=== PATIENT | female | born 2000 | race Caucasian/White ===

== ENCOUNTER 2022-03-10 19:29 | Emergency (ER) | payer OTHER ==
[2022-03-10] MEDS ORDERED: Lorazepam 2 MG/ML VIAL ONE (19:52)
[2022-03-10] MEDS ORDERED: Ketorolac Tromethamine 30 MG/ML VIAL ONE (19:52)
[2022-03-10] MEDS ORDERED: Divalproex Sodium 125 mg Sprinkle Capsule PO SCH (20:30)
[2022-03-10 21:16] LABS: Bilirubin Negative (Negative); Blood, Urine Small (Negative); Clarity Clear (Clear); Glucose, Urine (Dipstick) Negative (Negative); Ketone, Urine Negative (Negative); Leukocyte Negative (Negative); Nitrite Negative (Negative); Protein, Urine (Dipstick) Negative (Neg-Trace); Specific Gravity, Urine 1.015 (1.005-1.030); Urobilinogen 0.2 mg/dL (Less than 2)
[2022-03-10 21:18] LABS: Bacteria/HPF Rare-Few HPF (None Seen); Mucous/LPF None Seen LPF (<2+); Squamous Epithelial 0-3 HPF (0-3); WBC/HPF None Seen HPF (0-3)
== END 2022-03-10 21:34 | disposition home or self-care (01) ==
LOC: BURERS 19:29
DX: G43.909 Migraine, unspecified, not intractable, without status migrainosus (principal); N92.6 Irregular menstruation, unspecified
CPT/HCPCS: 70450; 81003; 81015; 96374; 96375; J1885; J2060